=== PATIENT | female | born 1975 | race Caucasian/White ===

== ENCOUNTER 2018-03-14 16:36 | Emergency (ER) | payer OTHER, MEDICAID ==
[2018-03-14] MEDS ORDERED: DEXAMETHASONE 10 MG/ML VIAL IVP ONE (18:24)
[2018-03-14] MEDS ORDERED: METOCLOPRAMIDE 10 MG/2 ML VIAL IVP ONE (18:24)
--- NOTE | 2018-03-14 18:26 | EDPHY ---
H & P Stated Complaint: Migraine x 1 week, seen by neuro, tried nerve block and injection w/o relie Time Seen by Provider: 03/14/18 17:51 HPI/ROS: CHIEF COMPLAINT: Migraine headache HISTORY OF PRESENT ILLNESS: 42-year-old female with migraine headaches presents with a recurrent migraine headache. Onset of headache 1 week ago. The headache is throbbing and associated with nausea and photophobia. She saw her neurologist yesterday who performed a a cervical injection of lidocaine. Since the injection, she has had increasing headache. Her headaches are usually relieved with Imitrex and Phenergan. She has tried these medications without relief. The headache is lasting longer than usual, but is typical of her migraine headaches. REVIEW OF SYSTEMS: complete 10 point ROS reviewed and is negative except for the noted elements in the HPI - Personal History LMP (Females 10-55): Hysterectomy Current Tetanus Diphtheria and Acellular Pertussis (TDAP): Yes Tetanus Vaccine Date: 2016 - Medical/Surgical History Hx Asthma: No Hx Chronic Respiratory Disease: No Hx Diabetes: No Hx Cardiac Disease: No Hx Renal Disease: No Hx Cirrhosis: No Hx Alcoholism: No Hx HIV/AIDS: No Hx Splenectomy or Spleen Trauma: No Other PMH: Uterine CA, migraines SALDANA, major depressive disorder, PTSD, chronic back pain, neuropathy in RLE, rotator cuff tear in L, gallstones - Social History Smoking Status: Never smoked - Physical Exam Exam: General Appearance: Alert, pleasant Eyes: Pupils equal and round, no conjunctival pallor or injection ENT, Mouth: Mucous membranes moist Neck: Normal inspection Respiratory: Lungs are clear to auscultation Cardiovascular: Regular rate and rhythm Gastrointestinal: Abdomen is soft and nontender Neurological: Alert, oriented x3, cranial nerves II through XII intact, motor 5 /5, sensory intact to light touch Skin: Warm and dry Extremities: Nontender, no pedal edema Psychiatric: Mood and affect normal Constitutional: Initial Vital Signs Temperature (C) 36.8 C 03/14/18 16:45 Heart Rate 76 03/14/18 16:45 Respiratory Rate 18 03/14/18 16:45 Blood Pressure 138/90 H 03/14/18 16:45 O2 Sat (%) 94 03/14/18 16:45 O2 Delivery Mode Room Air Allergies/Adverse Reactions: aspirin Allergy (Verified 03/14/18 16:45) codeine Allergy (Verified 03/14/18 16:45) Anaphylaxis Penicillins Allergy (Verified 03/14/18 16:45) Anaphylaxis sertraline [From Zoloft] Allergy (Verified 03/14/18 16:45) Home Medications: Medication Instructions Recorded Amitriptyline HCl 03/14/18 Cyclobenzaprine 03/14/18 Gabapentin 03/14/18 Hydrochlorothiazide 03/14/18 Prazosin HCl 03/14/18 Promethazine HCl 03/14/18 SUMAtriptan 100 mg pe 03/14/18 Trazodone HCl 100 mg 03/14/18 Trokendi Xr 03/14/18 amLODIPine BESYLATE 03/14/18 busPIRone 03/14/18 hydrOXYzine HCL [Hydroxyzine HCl] 10 mg PO 03/14/18 Medical Decision Making ED Course/Re-evaluation: This patient presents with a prolonged migraine headache. Neurologic exam is normal and I do not suspect an alternative etiology for the headache. Reglan, Benadryl and Decadron IV given. 8:15 p.m.: Headache has completely resolved. Patient is ready for discharge home. Will follow up with her neurologist. Differential Diagnosis: Headache including but not limited to subarachnoid hemorrhage, migraine headache , tension headache and infectious causes such as meningitis, pharyngitis and sinusitis. - Data Points Medications Given: Discontinued Medications Dexamethasone (Decadron Injection) 10 mg IVP EDNOW ONE Stop: 03/14/18 19:31 Last Admin: 03/14/18 19:37 Dose: 10 mg Diphenhydramine HCl (Benadryl Injection) 25 mg IVP EDNOW ONE Stop: 03/14/18 18:25 Last Admin: 03/14/18 19:24 Dose: 25 mg Metoclopramide HCl (Reglan Injection) 10 mg IVP EDNOW ONE Stop: 03/14/18 18:25 Last Admin: 03/14/18 19:24 Dose: 10 mg Departure - Departure Disposition: Home, Routine, Self-Care Clinical Impression: Migraine headache Qualifiers: Migraine type: without aura Status migrainosus presence: with status migrainosus Intractability: intractable Qualified Code(s): G43.011 - Migraine without aura, intractable, with status migrainosus Condition: Fair Instructions: Migraine Headache (ED) Referrals: LIAN VASQUEZ [Other] - As per Instructions
[2018-03-14] MEDS ORDERED: DEXAMETHASONE 4 MG/ML VIAL IVP ONE (19:30)
[2018-03-14 20:26] VITALS: BP 122/78
== END 2018-03-14 20:31 | disposition home or self-care (01) ==
DX: G43.011 Migraine without aura, intractable, with status migrainosus (principal)
CPT/HCPCS: 96374; 96375; 99284; J1100; J1200; J2765

== ENCOUNTER 2018-03-20 16:33 | Emergency (ER) | payer OTHER, MEDICAID ==
--- NOTE | 2018-03-20 17:10 | EDPHY ---
H & P Stated Complaint: red/swollen area r shoulder post inj phenergan /sumatriptan last monday - Personal History LMP (Females 10-55): Hysterectomy Current Tetanus Diphtheria and Acellular Pertussis (TDAP): Yes Tetanus Vaccine Date: 2016 - Medical/Surgical History Hx Asthma: No Hx Chronic Respiratory Disease: No Hx Diabetes: No Hx Cardiac Disease: No Hx Renal Disease: No Hx Cirrhosis: No Hx Alcoholism: No Hx HIV/AIDS: No Hx Splenectomy or Spleen Trauma: No Other PMH: hysterectomyUterine CA, migraines SALDANA, major depressive disorder, PTSD , chronic back pain, neuropathy in RLE, rotator cuff tear in L, gallstones - Social History Smoking Status: Never smoked Time Seen by Provider: 03/20/18 16:51 HPI/ROS: CHIEF COMPLAINT: Right deltoid discoloration x1 week HISTORY OF PRESENT ILLNESS: 42-year-old female history of chronic migraine was at her pain management clinic 1 week ago, given right deltoid injection of of promethazine and Imitrex, subsequently developed discoloration to the area. She was seen at [facility] today and referred to see surgeon Dr. Toussaint for concerns over possible promethazine induced tissue necrosis. Limited range of motion secondary to pain. No fever or chills. No paresthesia distally. No neck pain. No sloughing of tissue. PRIMARY CARE PROVIDER: [facility] REVIEW OF SYSTEMS: 10 systems reviewed and negative with the exception of the elements mentioned in the history of present illness PAST MEDICAL & SURGICAL HISTORY: Chronic Migraine SOCIAL HISTORY: no illicit drug use PHYSICAL EXAM (Prior to examination, patient consented to physical exam, hands were washed and my usual and customary physical exam procedures followed) 1) GENERAL: Alert and oriented. Appears to be in no acute distress. Answering questions appropriately. It is appears nontoxic 2) HEAD: Normocephalic, atraumatic 3) HEENT: Sclera anicteric. 4) NECK: Full range of motion, no meningeal signs. 5) LUNGS: Clear auscultation bilaterally, no wheezes, no rhonchi, no retractions. 6) HEART: Regular rate and rhythm, no murmur, no heave, no gallop. 7) ABDOMEN: No guarding, no rebound, no focal tenderness,, 8) MUSCULOSKELETAL: Right upper extremity: Right deltoid ecchymotic coloration with associated tenderness to palpation overlying the ecchymotic discoloration. Soft compartments. No fluctuance. No central lesion. No foul smell. No sloughing of tissue. No erythema or induration. No pain to underlying osseous structures. Limited range of motion the shoulder secondary to pain. No pain with axial loading of the glenoid. Distal radial ulnar median nerve function intact. Axillary nerve function intact. 9) BACK:, no visual or palpable abnormality. 10) SKIN: No rash, no petechiae. 11) Psychiatric: Patient is oriented X 3, there is no agitation. DIFFERENTIAL DIAGNOSIS: In no particular order including but not limited to cellulitis, tissue necrosis, ecchymosis (Chidi,Whit Payal) Constitutional: Initial Vital Signs Temperature (C) 36.8 C 03/20/18 16:40 Heart Rate 76 03/20/18 16:40 Respiratory Rate 18 03/20/18 16:40 Blood Pressure 150/101 H 03/20/18 16:40 O2 Sat (%) 95 03/20/18 16:40 O2 Delivery Mode Room Air Allergies/Adverse Reactions: aspirin Allergy (Verified 03/20/18 16:39) Rash codeine Allergy (Verified 03/20/18 16:39) Anaphylaxis Penicillins Allergy (Verified 03/20/18 16:39) Anaphylaxis sertraline [From Zoloft] Allergy (Verified 03/20/18 16:39) hallucinate Home Medications: Medication Instructions Recorded Amitriptyline HCl 100 mg PO 03/14/18 Cyclobenzaprine 10 mg PO TID 03/14/18 Gabapentin 600 mg PO QID 03/14/18 Hydrochlorothiazide 1 tab PO DAILY 03/14/18 Prazosin HCl 2 mg PO QID 03/14/18 Promethazine HCl 25 mg PO BID 03/14/18 SUMAtriptan 100 mg PO PRN PRN 03/14/18 Trazodone HCl 100 mg PO DAILY AT 9PM 03/14/18 Trokendi Xr 125 mg PO DAILY 03/14/18 amLODIPine BESYLATE 1 tab PO DAILY 03/14/18 busPIRone 70 mg PO DAILY 03/14/18 hydrOXYzine HCL [Hydroxyzine HCl] 10 mg PO BID 03/14/18 Medical Decision Making ED Course/Re-evaluation: 5:00 p.m.: Patient was also seen exam by Dr. Gideon Galeana in the ER, primary supervising physician. On exam I think that cellulitis or suri tissue necrosis are less than likely at this time. She is neurovascularly intact. She was sent to the ER to be evaluated by surgeon. Will consult with on-call general surgeon. 5:20 p.m.: Phone consultation with General surgery Dr. Ruth Valdez who will come to the ER to evaluate patient 5:58 p.m.: Dr. Ruth Valdez has evaluated the patient in the ER, recommend she follow-up tomorrow in her office at 11:00 a.m. which patient is agreeable with. (Whit Murillo) Other Provider: I evaluated and participated in the management of the patient. I also evaluated the patient independently. My co-signature indicates that I have reviewed this chart and I agree with the findings and plan of care as documented. My personal H&P findings include: Patient presents to the ED at the request of her primary care provider for concern about a necrotizing injury from a Phenergan IM injection. The patient's physical examination demonstrates what appears to be bruising ecchymosis over the deltoid muscle. She has no surrounding erythema, she has no fluctuance and is intact neurologically. The patient was seen in consultation by Dr. Valdez from surgery who concurs with this diagnosis. She will see the patient in follow-up in her office. (Gideon Galeana) Departure - Departure Disposition: Home, Routine, Self-Care Clinical Impression: Abnormal bruising Condition: Good Instructions: Contusion in Adults (ED) Additional Instructions: Keep your appointment tomorrow with Dr. Ruth Valdez 11:00 a.m. Referrals: Ruth Valdez MD [Medical Doctor] - 03/20/18 11:00 am
[2018-03-20 18:11] VITALS: BP 145/99
--- NOTE | 2018-03-21 05:46 | GCON ---
DATE OF CONSULTATION: 03/20/2018 CHIEF COMPLAINT: Tender right upper arm. HISTORY OF PRESENT ILLNESS: The patient is a 42-year-old woman who has a history of chronic migraine s. She was given an injection of promethazine approximately 1 week ago and then Imitrex. She had a small band of bhandari discoloration that then progressed to more purple. She has pain directly over the area of injection and does have some limited range of motion. She was evaluated at [facility], who discussed the case with Dr. Toussaint, who recommended she present to the emergency room. PAST MEDICAL HISTORY: Includes depression, PTSD, back pain, neuropathy, migraines. PAST SURGICAL HISTORY: Includes hysterectomy for uterine cancer. ALLERGIES: Include aspirin, codeine, penicillin, sertraline. SOCIAL HISTORY: She is a never smoker. FAMILY HISTORY: Noncontributory to right deltoid. REVIEW OF SYSTEMS: Denies fevers or chills. PHYSICAL EXAMINATION: VITAL SIGNS: 36.9, 85, 145/99, 18, 98%. GENERAL: Pleasant obese woman sitti ng up on gurney. HEENT: Normocephalic. No gross hearing deficits. Mucous membranes moist. Pupils equal and round. No scleral icterus. LUNGS: No increased work of breathing. CARDIAC: Regular ra te. PSYCH: Mood and affect normal. SKIN: She has approximately 7 cm area of light discoloration o javier her deltoid. It is tender to palpation. The surrounding area is not tender. She does have good strength in her forearm and good manager analytical strength. However, the deltoid itself is tender for motion. IMPRESSION AND PLAN: The patient is a 42-year-old woman status post injection. The most likely caus e of this is a hematoma. I do not think that she has any dangerous skin infection. She will come to my office tomorrow morning so that I can recheck it. The area was marked. /[id number]/MODL
== END 2018-03-20 18:11 | disposition home or self-care (01) ==
DX: R23.3 Spontaneous ecchymoses (principal); Z79.899 Other long term (current) drug therapy

== ENCOUNTER 2018-04-05 10:25 | Outpatient (CLI) | payer OTHER, MEDICAID ==
[2018-04-05] MEDS ORDERED: GADOBUTROL 10 ML VIAL IVP ONE (13:32)
[2018-04-05] MEDS ORDERED: MIDAZOLAM 2 MG/2 ML VIAL ONE (13:33)
[2018-04-05] MEDS ORDERED: PROPOFOL 200 MG/20 ML VIAL ONE (13:33)
[2018-04-05] MEDS ORDERED: MIDAZOLAM 2 MG/2 ML VIAL IVP PRN (14:13)
--- NOTE | 2018-04-05 14:13 | PDANEPAE ---
ANE History of Present Illness migraines, here for MRI brain and neck ANE Past Medical History - Cardiovascular History Hx Hypertension: Yes Hx Arrhythmias: No Hx Chest Pain: No Hx Coronary Artery / Peripheral Vascular Disease: No Hx CHF / Valvular Disease: No Hx Palpitations: No - Pulmonary History Hx COPD: No Hx Asthma/Reactive Airway Disease: No Hx Recent Upper Respiratory Infection: No Hx Oxygen in Use at Home: No Hx Sleep Apnea: No - Endocrine History Hx Diabetes: No - Renal History Hx Renal Disorders: No - Liver History Hx Hepatic Disorders: No - Neurological & Psychiatric Hx Hx Neurological and Psychiatric Disorders: Yes ANE Review of Systems Review of Systems: ANE Patient History - Allergies Allergies/Adverse Reactions: aspirin Allergy (Verified 03/20/18 16:39) Rash codeine Allergy (Verified 03/20/18 16:39) Anaphylaxis Penicillins Allergy (Verified 03/20/18 16:39) Anaphylaxis sertraline [From Zoloft] Allergy (Verified 03/20/18 16:39) hallucinate - Home Medications Home Medications: Amitriptyline HCl 100 mg PO 03/14/18 [Last Taken Unknown] Cyclobenzaprine 10 mg PO TID 03/14/18 [Last Taken Unknown] Gabapentin 600 mg PO QID 03/14/18 [Last Taken Unknown] Hydrochlorothiazide 1 tab PO DAILY 03/14/18 [Last Taken Unknown] Prazosin HCl 2 mg PO QID 03/14/18 [Last Taken Unknown] Promethazine HCl 25 mg PO BID 03/14/18 [Last Taken Unknown] SUMAtriptan 100 mg PO PRN PRN 03/14/18 [Last Taken Unknown] Trazodone HCl 100 mg PO DAILY AT 9PM 03/14/18 [Last Taken Unknown] Trokendi Xr 125 mg PO DAILY 03/14/18 [Last Taken Unknown] amLODIPine BESYLATE 1 tab PO DAILY 03/14/18 [Last Taken Unknown] busPIRone 70 mg PO DAILY 03/14/18 [Last Taken Unknown] hydrOXYzine HCL [Hydroxyzine HCl] 10 mg PO BID 03/14/18 [Last Taken Unknown] - Smoking Hx Smoking Status: Never smoked ANE Labs/Vital Signs - Vital Signs Blood Pressure: 143/87 Heart Rate: 79 Respiratory Rate: 20 O2 Sat (%): 96 ANE Physical Exam - Airway Neck exam: increased neck circumference, short neck Mouth exam: normal dental/mouth exam - Pulmonary Pulmonary: no respiratory distress, no rales or rhonchi - Cardiovascular Cardiovascular: regular rate and rhythym, no murmur, rub, or gallop - ASA Status ASA Status: II ANE Anesthesia Plan Anesthesia Plan: GA w LMA Total IV Anesthesia: No
[2018-04-05] MEDS ORDERED: PROPOFOL 200 MG/20 ML VIAL IVP ONE (14:15)
[2018-04-05] MEDS ORDERED: DEXAMETHASONE 4 MG/ML VIAL IVP PRN (14:24)
[2018-04-05] MEDS ORDERED: ONDANSETRON 4 MG/2 ML VIAL IVP PRN (14:24)
[2018-04-05] MEDS ORDERED: oxyCODONE IR 5 MG TAB PO PRN (14:24)
[2018-04-05] MEDS ORDERED: MEPERIDINE 25 MG/0.5 ML AMP IVP PRN (14:24)
[2018-04-05] MEDS ORDERED: ACETAMINOPHEN 500 MG TAB PO PRN (14:24)
[2018-04-05] MEDS ORDERED: PROMETHAZINE HCL 25 MG/ML INJ IVP PRN (14:24)
[2018-04-05] MEDS ORDERED: ALBUTEROL 3 ML DEYVIAL IH PRN (14:24)
[2018-04-05] MEDS ORDERED: NALOXONE HCL 0.4 MG/ML INJ IVP PRN (14:24)
--- NOTE | 2018-04-05 15:58 | POSTANESTH ---
Post Anesthetic Evaluation Cardiovascular Status: Normal, Stable Respiratory Status: Normal, Stable Level of Consciousness/Mental Status: Can Participate in Eval, Alert and Oriented Pain Control: Adequate, Prn Tx Ordered Nausea/Vomiting Control: Adequate, Prn Tx Ordered Complications Possibly Related to Anesthesia: None Noted
[2018-04-05 16:36] VITALS: BP 133/84
== END 2018-04-05 16:44 | disposition home or self-care (01) ==
LOC: FIMAGING 10:25
PROVIDERS: ATTEND Physician Assistant Medical
DX: M50.222 Other cervical disc displacement at C5-C6 level (principal); G43.909 Migraine, unspecified, not intractable, without status migrainosus; M48.02 Spinal stenosis, cervical region; M46.92 Unspecified inflammatory spondylopathy, cervical region
CPT/HCPCS: 70544; 70553; 72156; A9585; J2250; J2704

== ENCOUNTER 2018-04-16 15:52 | Emergency (ER) | payer OTHER, MEDICAID ==
[2018-04-16] MEDS ORDERED: NS 1,000 ML IV ONE ×2 (15:57)
[2018-04-16] MEDS ORDERED: PROMETHAZINE HCL 25 MG/ML INJ IVP ONE (15:57)
[2018-04-16] MEDS ORDERED: HYDROmorphONE/DILAUDID 2 MG/ML INJ IVP ONE (15:57)
--- NOTE | 2018-04-16 16:18 | EDPHY ---
H & P Source: Patient, RN/MD, EMS, Old records Exam Limitations: No limitations - Personal History Tetanus Vaccine Date: 2016 - Medical/Surgical History Hx Asthma: No Hx Chronic Respiratory Disease: No Hx Diabetes: No Hx Cardiac Disease: No Hx Renal Disease: No Hx Cirrhosis: No Hx Alcoholism: No Hx HIV/AIDS: No Hx Splenectomy or Spleen Trauma: No Other PMH: hysterectomyUterine CA, migraines SALDANA, major depressive disorder, PTSD , chronic back pain, neuropathy in RLE, rotator cuff tear in L, gallstones - Social History Smoking Status: Never smoked Time Seen by Provider: 04/16/18 15:58 HPI/ROS: HPI: This is a 42-year-old female who presents with Chief Complaint: Right upper quadrant pain Location: Right upper quadrant abdominal Quality: Pain Duration: 1 day Signs and Symptoms: no fever, + nausea, + vomiting, no hematemesis, no blood in stool, no abdominal bloating, no diarrhea, no back pain, no urinary symptoms, no vaginal bleeding/discharge, no indigestion, no chest pain, no shortness of breath Timing: Acute on chronic Severity: Moderate Context: Patient presents via EMS with pain so severe that she almost"passed out but did not."Prior to arrival. Patient reports that last night she started to experience right upper quadrant pain accompanied by nausea and vomiting approximately 5-7 times of stomach contents. She reports that the last time she vomited was this morning around 8:00 a.m.. She reports that she has a history of gallstones that is followed by Dr. Valdez outpatient. She reports that she has a sore on her right upper extremity that Dr. Valdez is following and plans to remove 1st and then will"deal with the gallbladder later." Patient reports that she is extremely strict on her diet and only had grilled chicken, mashed potatoes and a vegetable yesterday. This morning she ate a banana. Patient denies any fever, urinary symptoms, back pain, abdominal bloating, blood in stool, hematemesis, vaginal discharge. She is status post hysterectomy. Patient reports that her last imaging of her gallbladder was at seen at the knees approximately 1 year ago near the [facility]. Patient actually denies loss of consciousness, dizziness, headache, chest pain, shortness of breath. Modifying Factors: None Comment: ROS: A comprehensive 10 system review of systems is otherwise negative aside from elements mentioned in the history of present illness. MEDICAL/SURGICAL/SOCIAL HISTORY: Medical/surgical history: hysterectomy, Uterine CA, migraines SALDANA, major depressive disorder, PTSD, chronic back pain, neuropathy in RLE, rotator cuff tear in L, gallstones Social history: , disabled, nonsmoker. Family history noncontributory. CONSTITUTIONAL: Polite and cooperative, morbidly obese, nontoxic-appearing middle-aged white female, able to transfer from ambulance stretcher to the ER stretcher without difficulty. awake and alert, no obvious distress HEENT: Atraumatic and normocephalic, PERRL, EOMI. Nares patent; no rhinorrhea; no nasal mucosal edema. Tympanic membranes clear. Oropharynx clear, no exudate and moist pink mucosa. Airway patent. No lymphadenopathy. No meningismus. Cardiovascular: Normal S1/S2, regular rate, regular rhythm, without murmur rub or gallop. PULMONARY/CHEST: Symmetrical and nontender. Clear to auscultation bilaterally. Good air movement. No accessory muscle usage. ABDOMEN: Soft, obesely rounded, moderate right upper quadrant tenderness, no rebound, no guarding, no peritoneal signs, no masses or organomegaly. No CVAT. Bowel sounds difficult to hear due to body habitus. EXTREMITIES: 2/2 pulses, strength 5/5, no deformities, no clubbing, no cyanosis or edema. NEUROLOGICAL: no focal neuro deficits. GCS 15. SKIN: Warm and dry, right upper lateral arm shows 4 in x 3 in skin changed area with no surrounding erythema or discharge. no erythema. no rash. Good capillary refill. (Lamont,Terra) Constitutional: Initial Vital Signs Temperature (C) 36.8 C 04/16/18 15:57 Heart Rate 72 04/16/18 15:57 Respiratory Rate 16 04/16/18 15:57 Blood Pressure 152/92 H 04/16/18 15:57 O2 Sat (%) 99 04/16/18 15:57 O2 Delivery Mode Room Air Allergies/Adverse Reactions: aspirin Allergy (Verified 04/16/18 15:57) Rash codeine Allergy (Verified 04/16/18 15:57) Anaphylaxis Penicillins Allergy (Verified 04/16/18 15:57) Anaphylaxis sertraline [From Zoloft] Allergy (Verified 04/16/18 15:57) hallucinate Home Medications: Medication Instructions Recorded Amitriptyline HCl 100 mg PO 03/14/18 Cyclobenzaprine 10 mg PO TID 03/14/18 Gabapentin 600 mg PO QID 03/14/18 Hydrochlorothiazide 1 tab PO DAILY 03/14/18 Prazosin HCl 2 mg PO QID 03/14/18 Promethazine HCl 25 mg PO BID 03/14/18 SUMAtriptan 100 mg PO PRN PRN 03/14/18 Trazodone HCl 100 mg PO DAILY AT 9PM 03/14/18 Trokendi Xr 125 mg PO DAILY 03/14/18 amLODIPine BESYLATE 1 tab PO DAILY 03/14/18 busPIRone 70 mg PO DAILY 03/14/18 hydrOXYzine HCL [Hydroxyzine HCl] 10 mg PO BID 03/14/18 Promethazine HCl 25 mg PO Q4-6PRN PRN #12 tablet 04/16/18 oxyCODONE/APAP 5/325 [Percocet 1 - 2 tab PO Q4H PRN #10 tab 04/16/18 5/325 (*)] Medical Decision Making - Diagnostics Imaging Results: Imaging Impressions Abdomen CT 04/16/18 15:57 Impression: 1. Cholelithiasis, without stranding or inflammation, fluid, or biliary obstruction. 2. Query minimal stranding around a loop of bowel at the right lower quadrant. This is a very soft call. 3. Diverticulosis. Findings and recommendations discussed with Rukhsana Stone PA-C, at 5:40 p.m., on April 16, 2018. Final report concurs with initial preliminary interpretation. ED Course/Re-evaluation: Vital signs reviewed and show elevated blood pressure upon arrival. No systemic signs to indicate sepsis. IV access, laboratory studies, urinalysis, CT abdomen and pelvis scan with contrast ordered Patient has a very large body habitus and I do not feel the benefit of abdominal ultrasound Patient given 2 L normal saline, IV Dilaudid 0.5 mg, and IV promethazine 12.5 mg 1646: Labs reviewed. WBC 10 K with no left shift, lipase 710 no other value to compare. No signs of anemia/platelet dysfunction/HILLARY/elevated LFTs/ electrolyte imbalance. 1741: Called by radiologist, Dr. Medina, who advised that CT abdomen and pelvis scan shows no signs of cholecystitis, no stranding no common bile duct dilatation does show gallstones but no lodged in the neck. No signs of pancreatitis she does have ticks with possibly early diverticulitis, constipation in the right upper quadrant ascending colon. No findings of obstruction or colitis. 1743: Reassessed patient. Reports complete relief of abdominal pain and no nausea or vomiting the 3 hr in the emergency room. Patient has no pain in right lower quadrant, left lower quadrant, right upper quadrant and doubt diverticulitis. Drinking liquids and eating Cassius crackers without difficulty or return of pain. Patient has appointment with Dr. Tan in on and wishes to be discharged home. Patient understands she needs to be compliant on a low-fat diet. I will give her prescription for promethazine and Percocet in the interim. This patient was seen under the supervision of my secondary supervising physician. I evaluated care for this patient with my attending. Discussed this patient with Dr. Cardenas who did not see the patient. (Rukhsana Stone) I did not see this patient while she was in the emergency department. However her care was discussed with the PA while the patient was in the department. I agree with treatment plan and management (Ziggy Cardenas) Differential Diagnosis: Abdominal pain including but not limited to appendicitis, cholecystitis, gastritis and urinary tract infection. (Rukhsana Stone) - Data Points Laboratory Results: Laboratory Results 04/16/18 16:10 04/16/18 16:10 04/16/18 04/16/18 04/16/18 16:10 16:10 16:10 WBC 9.87 10^3/uL H 10^3/uL (3.80-9.50) RBC 5.09 10^6/uL 10^6/uL (4.18-5.33) Hgb 14.2 g/dL g/dL (12.6-16.3) Hct 45.3 % % (38.0-47.0) MCV 89.0 fL fL (81.5-99.8) MCH 27.9 pg pg (27.9-34.1) MCHC 31.3 g/dL L g/dL (32.4-36.7) RDW 14.2 % % (11.5-15.2) Plt Count 202 10^3/uL 10^3/uL (150-400) MPV 13.5 fL H fL (8.7-11.7) Neut % (Auto) 65.8 % % (39.3-74.2) Lymph % (Auto) 21.5 % % (15.0-45.0) Mineral % (Auto) 7.7 % % (4.5-13.0) Eos % (Auto) 3.7 % % (0.6-7.6) Baso % (Auto) 0.8 % % (0.3-1.7) Nucleat RBC Rel Count 0.0 % % (0.0-0.2) Absolute Neuts (auto) 6.49 10^3/uL 10^3/uL (1.70-6.50) Absolute Lymphs (auto) 2.12 10^3/uL 10^3/uL (1.00-3.00) Absolute Monos (auto) 0.76 10^3/uL 10^3/uL (0.30-0.80) Absolute Eos (auto) 0.37 10^3/uL 10^3/uL (0.03-0.40) Absolute Basos (auto) 0.08 10^3/uL 10^3/uL (0.02-0.10) Absolute Nucleated RBC 0.00 10^3/uL 10^3/uL (0-0.01) Immature Gran % 0.5 % % (0.0-1.1) Immature Gran # 0.05 10^3/uL 10^3/uL (0.00-0.10) Sodium 137 mEq/L mEq/L (135-145) Potassium 3.9 mEq/L mEq/L (3.5-5.2) Chloride 105 mEq/L mEq/L (97-110) Carbon Dioxide 23 mEq/l mEq/l (22-31) Anion Gap 9 mEq/L mEq/L (6-14) BUN 12 mg/dL mg/dL (7-23) Creatinine 0.8 mg/dL mg/dL (0.6-1.0) Estimated GFR > 60 Glucose 85 mg/dL mg/dL (70-100) Calcium 10.4 mg/dL mg/dL (8.5-10.4) Total Bilirubin 0.3 mg/dL mg/dL (0.1-1.4) Conjugated Bilirubin 0.2 mg/dL mg/dL (0.0-0.5) Unconjugated Bilirubin 0.1 mg/dL mg/dL (0.0-1.1) AST 19 IU/L IU/L (14-46) ALT 28 IU/L IU/L (9-52) Alkaline Phosphatase 89 IU/L IU/L (38-126) Total Protein 6.7 g/dL g/dL (6.3-8.2) Albumin 3.8 g/dL g/dL (3.5-5.0) Lipase 710 IU/L H IU/L (23-300) Beta HCG, Qual NEGATIVE Urine Color Urine Appearance Urine pH Ur Specific [place] Urine Protein Urine Ketones Urine Blood Urine Nitrate Urine Bilirubin Urine Urobilinogen Ur Leukocyte Esterase Urine Glucose 04/16/18 15:20 WBC RBC Hgb Hct MCV MCH MCHC RDW Plt Count MPV Neut % (Auto) Lymph % (Auto) Mineral % (Auto) Eos % (Auto) Baso % (Auto) Nucleat RBC Rel Count Absolute Neuts (auto) Absolute Lymphs (auto) Absolute Monos (auto) Absolute Eos (auto) Absolute Basos (auto) Absolute Nucleated RBC Immature Gran % Immature Gran # Sodium Potassium Chloride Carbon Dioxide Anion Gap BUN Creatinine Estimated GFR Glucose Calcium Total Bilirubin Conjugated Bilirubin Unconjugated Bilirubin AST ALT Alkaline Phosphatase Total Protein Albumin Lipase Beta HCG, Qual Urine Color YELLOW Urine Appearance CLEAR Urine pH 7.0 (5.0-7.5) Ur Specific [place] 1.027 (1.002-1.030) Urine Protein NEGATIVE (NEGATIVE) Urine Ketones NEGATIVE (NEGATIVE) Urine Blood NEGATIVE (NEGATIVE) Urine Nitrate NEGATIVE (NEGATIVE) Urine Bilirubin NEGATIVE (NEGATIVE) Urine Urobilinogen NEGATIVE EU EU (0.2-1.0) Ur Leukocyte Esterase NEGATIVE (NEGATIVE) Urine Glucose NEGATIVE (NEGATIVE) Medications Given: Discontinued Medications Hydromorphone HCl (Dilaudid) 0.5 mg IVP EDNOW ONE Stop: 04/16/18 15:58 Last Admin: 04/16/18 16:07 Dose: 0.5 mg Sodium Chloride (Ns) 1,000 mls @ 0 mls/hr IV EDNOW ONE; Wide Open PRN Reason: Protocol Stop: 04/16/18 15:58 Last Admin: 04/16/18 16:01 Dose: 1,000 mls Sodium Chloride (Ns) 1,000 mls @ 0 mls/hr IV EDNOW ONE; Wide Open PRN Reason: Protocol Stop: 04/16/18 15:58 Last Admin: 04/16/18 16:08 Dose: 1,000 mls Promethazine HCl (Phenergan) 12.5 mg IVP EDNOW ONE Stop: 04/16/18 15:58 Last Admin: 04/16/18 16:07 Dose: 12.5 mg Departure - Departure Disposition: Home, Routine, Self-Care Clinical Impression: Cholelithiasis without cholecystitis, Recurrent biliary colic Condition: Good Instructions: Oxycodone/Acetaminophen (By mouth), Promethazine (By mouth), Biliary Colic (ED), Gallstones (ED), Low Fat Diet (ED) Additional Instructions: Consume a minimum of 8-10 glasses of water or electrolyte fluid replacement drinks that include Gatorade, Powerade, Pedialyte. Eat a bland/low-fat diet for the next 48 hours and then slowly advance as tolerated. Take promethazine 1 tab every 4 hours as needed for nausea, vomiting. Take Percocet every 6 hr as needed for severe/breakthrough pain Keep follow-up appointment with Dr. Valdez on . Return to the Emergency Room if symptoms do not resolve in the next 48-72 hours , you spike a fever > 102 F, or experience intractable abdominal pain/nausea/ vomiting. Referrals: LINA DE GUZMAN [Other] - As per Instructions Prescriptions: oxyCODONE/APAP 5/325 [Percocet 5/325 (*)] 1 - 2 tab PO Q4H PRN #10 tab PRN Reason: Pain, Severe Promethazine HCl 25 mg PO Q4-6PRN PRN #12 tablet PRN Reason: Nausea/Vomiting, Use 1st
[2018-04-16 16:45] LABS: PLATELET COUNT 202 10^3/uL (150-400)
[2018-04-16] MEDS ORDERED: IOPAMIDOL (ISOVUE 370) 100 ML BTL IV ONE (16:55)
[2018-04-16 18:00] VITALS: BP 107/62
== END 2018-04-16 18:05 | disposition home or self-care (01) ==
LOC: EDUNIT#
DX: K80.20 Calculus of gallbladder without cholecystitis without obstruction (principal); E86.9 Volume depletion, unspecified; Z90.710 Acquired absence of both cervix and uterus; Z85.42 Personal history of malignant neoplasm of other parts of uterus; Z87.19 Personal history of other diseases of the digestive system
CPT/HCPCS: 74177; 96361; 96374; 96375; 99285; J1170; J2550; Q9967

== ENCOUNTER 2018-05-04 11:27 | Day surgery (SDC) | payer OTHER, MEDICAID ==
[2018-05-04] MEDS ORDERED: ceFAZolin 2 GM/DEXTROSE 100 ML IV ONE (11:57)
--- NOTE | 2018-05-04 11:58 | PDHPUP ---
History & Physical Update H&P update statement: This history and physical update is based on an assessment of the patient which was completed after admission or registration (within 24 hours), but prior to the surgery/procedure. H&P update: H&P reviewed & patient examined, no change in patient's condition since H&P completed
[2018-05-04] MEDS ORDERED: LR 1,000 ML IV ONE (12:08)
[2018-05-04] MEDS ORDERED: BUPIVACAINE 0.5% 30 ML SDV ONE (12:30)
[2018-05-04] MEDS ORDERED: MIDAZOLAM 2 MG/2 ML VIAL IVP ONE (12:33)
[2018-05-04] MEDS ORDERED: MIDAZOLAM 2 MG/2 ML VIAL ONE (12:34)
--- NOTE | 2018-05-04 12:34 | PDANEPAE ---
ANE History of Present Illness cholelithiasis and right arm cellulitis ANE Past Medical History - Cardiovascular History Hx Hypertension: Yes Hx Arrhythmias: No Hx Chest Pain: No Hx Coronary Artery / Peripheral Vascular Disease: No Hx CHF / Valvular Disease: No Hx Palpitations: No Cardiovascular History Comment: pcp monitors bp meds - Pulmonary History Hx COPD: No Hx Asthma/Reactive Airway Disease: No Hx Recent Upper Respiratory Infection: No Hx Oxygen in Use at Home: No Hx Sleep Apnea: No Sleep Apnea Screening Result - Last Documented: Negative Pulmonary History Comment: hx of PNA 2015 - Neurologic History Hx Cerebrovascular Accident: No Hx Seizures: No Hx Dementia: No Neurologic History Comment: right leg neuropathy. tingling to hands and feet- has r/o MS but continues to work with neurologist. migraines. bulging l5 disc. TBI 1993 - Endocrine History Hx Diabetes: No Hypothyroid: No Hyperthyroid: No Obesity: severe - Renal History Hx Renal Disorders: Yes Renal History Comment: right kidney is smaller than left - Liver History Hx Hepatic Disorders: No - Neurological & Psychiatric Hx Hx Neurological and Psychiatric Disorders: Yes Neurological / Psychiatric History Comment: MDD. anxiety. severe PTSD. mood disorder. 36 suicide attempts and currently in counselling - Cancer History Hx Cancer: Yes Cancer History Comment: uterine ca 2015- both chemo and radiation following hysterectomy - Congenital Disorder History Hx Congenital Disorders: No - GI History GERD: moderate Hx Gastrointestinal Disorders: Yes Gastrointestinal History Comment: heartburn. hx of lower GI ulcer -no symptoms currently - Other Health History Other Health History: right arm wound 2/2 to injection of sumatriptan and nausea medication. hx of anemia - Chronic Pain History Chronic Pain: Yes (lower back) - Surgical History Prior Surgeries: MRI of brain/ c spine 04/16/18. hysterectomy 2016. left knee acl and patella 1996. tubal ligation 1994. tonsils 1984 and 1986 ANE Review of Systems Review of systems is: negative Review of Systems: - Exercise capacity Exercise capacity: limited by disability (limited by morbid obesity) METS (RN): 1 METS ANE Patient History - Allergies Allergies/Adverse Reactions: aspirin Allergy (Verified 05/04/18 11:58) Rash codeine Allergy (Verified 05/04/18 11:58) Anaphylaxis Penicillins Allergy (Verified 05/04/18 11:58) Anaphylaxis sertraline [From Zoloft] Allergy (Verified 05/04/18 11:58) hallucinate - Home Medications Home medications: home medication list seen and reviewed Home Medications: Amitriptyline HCl [Elavil 100 MG (*)] 100 mg PO HS 03/14/18 [Last Taken 05/03/18 ] Cyclobenzaprine [Flexeril 10 MG (*)] 10 mg PO TID 03/14/18 [Last Taken 05/03/18] Hydrochlorothiazide [HCTZ (*)] 25 mg PO DAILY 03/14/18 [Last Taken 05/03/18] Prazosin HCl 6 mg PO HS 03/14/18 [Last Taken 05/03/18] Promethazine HCl [Phenergan 25mg (*)] 25 mg PO Q4-6PRN PRN 03/14/18 [Last Taken 05/03/18] Sumatriptan Succinate [Imitrex] 100 mg PO DAILY PRN 03/14/18 [Last Taken ] amLODIPine BESYLATE [Norvasc 10 mg (*)] 10 mg PO DAILY 03/14/18 [Last Taken ] busPIRone [Buspar (*)] 60 mg PO DAILY 03/14/18 [Last Taken 05/03/18] traZODone [traZODONE 100MG (*)] 100 mg PO HS 03/14/18 [Last Taken 05/03/18] DULoxetine [Cymbalta 60 MG (*)] 60 mg PO BID 05/02/18 [Last Taken 05/03/18] Gabapentin [Neurontin 300 MG (*)] 600 mg PO QID 05/02/18 [Last Taken 05/03/18] Meloxicam [Mobic 15 mg] 15 mg PO HS 05/02/18 [Last Taken 05/03/18] Prazosin HCl 2 mg PO DAILY 05/02/18 [Last Taken 05/03/18] Topiramate [Topiramate ER] 150 mg PO HS 05/02/18 [Last Taken 05/03/18] busPIRone [Buspar (*)] 15 mg PO HS 05/02/18 [Last Taken 05/03/18] hydrOXYzine HCL 10 mg PO Q8 PRN 05/02/18 [Last Taken 05/03/18] - NPO status NPO Status: no food or drink >8 hours NPO Since - Liquids (Date): 05/03/18 NPO Since - Liquids (Time): 22:00 NPO Since - Solids (Date): 05/03/18 NPO Since - Solids (Time): 16:00 - Anes Hx Anes Hx: awareness under anesthesia - Smoking Hx Smoking Status: Never smoked - Family Anes Hx Family Hx Anesthesia Complications: sister has difficulty waking up after anesthesia ANE Labs/Vital Signs - Vital Signs Vital Signs: reviewed preoperatively; see RN documention for details Blood Pressure: 145/109 Heart Rate: 71 Respiratory Rate: 16 O2 Sat (%): 96 Height: 162.56 cm Weight: 134.717 kg ANE Physical Exam - Airway Neck exam: FROM Mallampati Score: Class 2 - Pulmonary Pulmonary: no respiratory distress - Cardiovascular Cardiovascular: regular rate and rhythym - ASA Status ASA Status: III ANE Anesthesia Plan Anesthesia Plan: general endotracheal anesthesia Specialized Airway: video laryngoscope
[2018-05-04] MEDS ORDERED: PROPOFOL 200 MG/20 ML VIAL ONE ×2 (12:37)
[2018-05-04] MEDS ORDERED: ROCURONIUM 50 MG/5 ML VIAL ONE ×2 (12:41→12:42)
[2018-05-04] MEDS ORDERED: ONDANSETRON 4 MG/2 ML VIAL ONE (12:42)
[2018-05-04] MEDS ORDERED: DEXAMETHASONE 4 MG/ML VIAL ONE ×2 (12:42)
[2018-05-04] MEDS ORDERED: LIDOCAINE 2% 5 ML SDV ONE (12:43)
[2018-05-04] MEDS ORDERED: fentaNYL 100 MCG/2 ML INJ ONE ×3 (12:46→15:47)
[2018-05-04] MEDS ORDERED: ACETAMINOPHEN 500 MG TAB PO PRN (13:49)
[2018-05-04] MEDS ORDERED: PHENYLEPHRINE HCL 100 MCG/ML SYR IVP PRN (13:49)
[2018-05-04] MEDS ORDERED: ALBUTEROL 3 ML DEYVIAL IH PRN (13:49)
[2018-05-04] MEDS ORDERED: NALOXONE HCL 0.4 MG/ML INJ IVP PRN (13:49)
[2018-05-04] MEDS ORDERED: MEPERIDINE 25 MG/0.5 ML AMP IVP PRN (13:49)
[2018-05-04] MEDS ORDERED: METOCLOPRAMIDE 10 MG/2 ML VIAL IVP PRN (13:49)
[2018-05-04] MEDS ORDERED: LR 500 ML IV PRN (13:49)
[2018-05-04] MEDS ORDERED: HYDROmorphONE/DILAUDID 2 MG/ML INJ IVP PRN (13:49)
[2018-05-04] MEDS ORDERED: PROMETHAZINE HCL 25 MG/ML INJ IVP PRN (13:49)
[2018-05-04] MEDS ORDERED: LABETALOL HCL 5 MG/ML 20 ML MDV IVP PRN (13:49)
[2018-05-04] MEDS ORDERED: NEOSTIGMINE METHYLSULFATE 5 MG/5 ML SYR ONE (14:09)
[2018-05-04] MEDS ORDERED: GLYCOPYRROLATE 0.2 MG/1 ML VIAL ONE ×2 (14:09)
[2018-05-04] MEDS ORDERED: KETOROLAC 30 MG/1 ML SDV ONE (14:12)
[2018-05-04] MEDS ORDERED: BUPIVACAINE/EPI 0.5% 30 ML SDV ONE (14:17)
--- NOTE | 2018-05-04 14:21 | POSTOPPROG ---
Post Op Note Date of Operation: 05/04/18 Surgeon: Ruth Valdez [employer] [facility] Marker: silva Anesthesiologist: marie Anesthesia: GET(General Endotracheal) Pre-op Diagnosis: symptomatic cholelithiasis, wound R shoulder Post-op Diagnosis: same Indication: 42yo F symptomatic cholelithiasis with SC phenergan-induced skin necrosis Procedure: lap katelin, debride skin soft tissue with wound closure Findings: post-debride dimensions [id number] Inf/Abcess present in the surg proc area at time of surgery?: Yes Depth: Superfical (Skin SQ) EBL: Minimal Specimen(s): gallbladder R shoulder tissue
[2018-05-04] MEDS: fentaNYL 100 MCG/2 ML INJ IVP PRN ×3 (14:47→15:50)
--- NOTE | 2018-05-04 14:53 | POSTANESTH ---
Post Anesthetic Evaluation Cardiovascular Status: Normal, Stable Respiratory Status: Normal, Stable Level of Consciousness/Mental Status: Can Participate in Eval Pain Control: Adequate, Prn Tx Ordered Nausea/Vomiting Control: Adequate, Prn Tx Ordered Complications Possibly Related to Anesthesia: None Noted
[2018-05-04 16:18] VITALS: BP 137/91
--- NOTE | 2018-05-05 08:39 | GOP ---
[f rep st] OPERATIVE REPORT DATE OF OPERATION: 05/04/2018 SURGEON: Ruth Valdez MD CERAMIC TILER: LOUIE Castellanos ANESTHESIOLOGIST: Wolf Simon MD PREOPERATIVE DIAGNOSIS: 1. Symptomatic cholelithiasis. 2. Full-thickness wound to right upper arm. 3. Umbilical hernia. POSTOPERATIVE DIAGNOSIS: 1. Symptomatic cholelithiasis. 2. Full-thickness wound to right upper arm. 3. Umbilical hernia. PROCEDURE PERFORMED: 1. Laparoscopic cholecystectomy. 2. Debridement skin, soft tissue, adipose tissue, 7 x 5 x 3 cm right shoulder. 3. Umbilical hernia repair. FINDINGS: The wound on her right shoulder with full thickness including some necrotic fat. The woun d measures 7 x 5 x 3 cm. SPECIMENS: Gallbladder and right shoulder tissue. ESTIMATED BLOOD LOSS: Minimal. INDICATIONS: The patient is a 42-year-old woman who I had been following after having a subcutaneous injection of Phenergan to her right shoulder which caused extreme pain and tissue necrosis. A lot o f the tissue recovered, however, when I last saw her, she had a complete eschar in 1 area on the shou lder. She also developed escalating symptoms of symptomatic cholelithiasis. Decision was made to go to the operating room to remove her gallbladder as well as to remove the devitalized tissue from her right shoulder. DESCRIPTION OF PROCEDURE: Patient was brought into the operating room, placed supine on the table, a nd general anesthesia was administered. Her abdomen was prepped and draped in the usual sterile fash ion. She has a long torso and I initially made an incision approximately 5 cm above the umbilicus. I infiltrated the area with 0.5% Marcaine. I elevated it and I inserted a long Veress needle. This did not penetrate into the abdominal cavity. I then made the decision to make a cutdown just below h er xiphoid process. I made a 3 cm incision and dissected down through the skin and subcutaneous tiss ues. I dissected down until I encountered the fascia. I elevated this and I divided it. I then, as the fascia was elevated, inserted the Veress needle which passed the hanging drop test. Her abdomen insufflated easily to a pressure of 15 mmHg. I then inserted a 12 mm trocar at this site. There we re no injuries from Veress needle placement, and I verified that I had not entered the abdominal cavi ty by her umbilicus. At this time, I could confirm an umbilical hernia. Under direct vision, I plac ed a 5 mm trocar at the incision above the umbilicus and two 5 mm trocars in the right lower quadrant . I had to perform adhesiolysis to dissect her gallbladder free from her stomach, small intestine an d omentum. I could then lift it cephalad and laterally to expose the triangle of Calot. I dissected and skeletonized the cystic artery and cystic duct so that they were the only 2 structures directly entering the gallbladder. I singly clipped them toward the gallbladder, doubly clipped them distally and transected with scissors. The clips just came across the cystic duct and so I also placed an 0 PDS Endoloop. The common bile duct was protected. I removed the gallbladder from the gallbladder fo ssa and placed this in an EndoCatch bag which was retrieved via the 10 mm trocar. Hemostasis was ach ieved and the clips and loop were in satisfactory position. I then removed some omentum from her umb ilical hernia. I made a small incision by her umbilicus and using a fascial closure device placed 3 interrupted sutures of 0 PDS to close this defect. I then moved the camera and closed the defect at the 12 mm trocar with 0 PDS. All skin was closed with 4-0 Monocryl, Dermabond applied. Next we prepped her arm with Betadine and draped it in the usual sterile fashion. I used electrocaut darline to remove the eschar and I had to remove some necrotic fat as well. The wound measures 7 x 5 x 3 cm. Hemostasis was achieved. I was able to close this wound with 2-0 nylon and 3-[address] d a silver silicone dressing at the site. She was awakened in the operating room, extubated, transfe rred to PACU in stable condition. /[id number]/MODL
--- NOTE | 2018-05-06 10:37 | CPEKG ---
Test Reason : OPEN Blood Pressure : / mmHG Vent. Rate : 071 BPM Atrial Rate : 071 BPM P-R Int : 188 ms QRS Dur : 101 ms QT Int : 391 ms P-R-T Axes : 055 038 033 degrees QTc Int : 425 ms Incomplete analysis due to missing data in precordial lead(s) Sinus rhythm Missing lead(s): V3 Confirmed by Rigoberto Ray ([id number]) on 05/06/2018 10:36:55 AM Referred By: Ruth Valdez Confirmed By:Rigoberto Ray
== END 2018-05-04 17:00 | disposition home or self-care (01) ==
LOC: UNDOADMOB 11:27 → F1N 11:27 → FSGY 11:27 → EDSTATUS 12:45 → FSGY 17:00 → UNDODISOB 17:00
PROVIDERS: ATTEND Surgery
DX: K80.20 Calculus of gallbladder without cholecystitis without obstruction (principal); I96 Gangrene, not elsewhere classified; L76.82 Other postprocedural complications of skin and subcutaneous tissue; K42.9 Umbilical hernia without obstruction or gangrene; G43.719 Chronic migraine without aura, intractable, without status migrainosus; Z90.710 Acquired absence of both cervix and uterus; Z85.42 Personal history of malignant neoplasm of other parts of uterus; Z87.19 Personal history of other diseases of the digestive system
CPT/HCPCS: J0690; J1100; J1885; J2250; J2405; J2704; J2710; J3010